=== PATIENT | male | born 1965 | race Two or more races ===

== ENCOUNTER 2017-08-17 10:48 | Emergency (ER) | payer OTHER ==
[~2017-08-17] VITALS: Ht 172.7 cm; Wt 80.8 kg
[~2017-08-17 10:48] MED LIST: ACET500C21 PO; DIPH25CA6 PO
[2017-08-17 10:52] VITALS: Ht 172.7 cm; Wt 80.8 kg
[2017-08-17] MEDS ORDERED: KETOROLAC 30 MG INJ IM STA (11:49)
--- NOTE | 2017-08-17 11:57 | ERD ---
ER Documentation Chief Complaint Chief Complaint LT LOWER BACK PAIN X 5 DAYS , NO TRAUMA HPI This is a 51-year-old male presenting to the emergency department with left lower back pain 5 days. Patient states he has sharp pain rating pain 6/10 to left lower back that radiates down left leg. Denies numbness or tingling or loss of sensation. Patient denies any injury or trauma to area. Patient denies any dysuria, hematuria, urinary frequency or urgency. No urinary incontinence. 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 No fevers or chills. No abdominal pain, nausea or vomiting. No chest pain, shortness of breath or difficulty breathing. No headache. Patient has used pain patches [id number] without relief of symptoms. ROS All systems reviewed and are negative except as per history of present illness. Medications Home Meds Active Scripts Hydrocodone/Acetaminophen ([place] 5-325 Tablet) 1 Each Tablet, 1 TAB PO Q6H Y for PAIN, #7 TAB Prov:CHRISSIE REINOSO NP 08/17/17 Ibuprofen* (Motrin*) 400 Mg Tab, 400 MG PO Q6, #30 TAB Prov:CHRISSIE REINOSO NP 08/17/17 Reported Medications Diphenhydramine Hcl (Benadryl) 25 Mg Cap, PO Q6 09/15/11 Acetaminophen (Acetaminophen) 500 Mg Capsule, PO Q4 09/15/11 Allergies Allergies: Coded Allergies: No Known Allergy (Unverified , 09/15/11) PMhx/Soc History of Surgery: Yes (HERNIA INGUINAL) Anesthesia Reaction: No Hx Neurological Disorder: No Hx Respiratory Disorders: No Hx Cardiac Disorders: No Hx Psychiatric Problems: No Hx Miscellaneous Medical Probl: No Hx Alcohol Use: Yes (OCCASSIONALLY) Hx Substance Use: No Hx Tobacco Use: No Physical Exam Vitals Vital Signs Date Time Temp Pulse Resp B/P Pulse Ox O2 Delivery O2 Flow Rate FiO2 08/17/17 10:52 98.6 72 18 151/79 99 Physical Exam Const: No acute distress, alert Head: Atraumatic Eyes: Normal Conjunctiva ENT: Normal External Ears, Nose and Mouth. Neck: Full range of motion..~ No meningismus. Resp: Clear to auscultation bilaterally Cardio: Regular rate and rhythm, no murmurs Abd: Soft, non tender, non distended. Normal bowel sounds Skin: No petechiae or rashes Back: No midline or flank tenderness. No CVA tenderness. Ext: No cyanosis, or edema. Positive straight leg raise to left leg. Neur: Awake and alert Psych: Normal Mood and Affect Results 24 hrs Current Medications Medications (Trade) Dose Ordered Sig/Michael Route PRN Reason Start Time Stop Time Status Last Admin Dose Admin Ketorolac Tromethamine (Toradol) 30 mg ONCE STAT IM 08/17/17 11:49 08/17/17 11:51 DC 08/17/17 12:22 Procedures/MDM MDM: This is a 51-year-old male presenting to the emergency department with left lower back pain that radiates down left leg 5 days. Patient is afebrile vital signs are stable. Denies flank pain, dysuria or hematuria. Denies chest pain, shortness breath or difficulty breathing. Patient has positive straight leg raise to left leg on physical exam. Patient given Toradol 30 mg IM while in the ED. Upon reassessment, patient states pain has improved. Low suspicion for cauda equina syndrome, acute fracture, acute dislocation, epidural abscess, malignancy and AAA rupture. Differential Diagnosis includes but is not limited to back strain, sciatica, vertebral fracture, herniated disc, spinal stenosis and nephrolithiasis. Patient is appropriate for outpatient management will be given prescription for ibuprofen and [place]. Instructed patient to follow-up with primary care provider in the next 2-3 days for reassessment and additional management. Resources provided. Return to ED for any high fever, chest pain, difficulty breathing, shortness breath, wheezing, vomiting, diarrhea, abdominal pain or any new or worsening symptoms. Patient verbalizes understanding. All questions answered at discharge. Disclaimer: Inadvertent spelling and grammatical errors are likely due to EHR/ dictation software use and do not reflect on the overall quality of patient care. Also, please note that the electronic time recorded on this note does not necessarily reflect the actual time of the patient encounter. Departure Diagnosis: Primary Impression: Back pain Back pain location: low back pain Chronicity: acute Back pain laterality: left Sciatica presence: with sciatica Sciatica laterality: sciatica of left side Qualified Code: M54.42 - Acute left-sided low back pain with left-sided sciatica Condition: Stable CHRISSIE REINOSO NP Aug 17, 2017 11:57
[2017-08-17] MEDS ORDERED: IBUP400T22 PO (13:34)
[2017-08-17] MEDS ORDERED: HYDR-906 PO (13:34)
== END 2017-08-17 13:47 | disposition home or self-care (01) ==
LOC: FTE 10:48
DX: M54.42 Lumbago with sciatica, left side (principal)
CPT/HCPCS: 96372; J1885; Z7502